=== PATIENT | male | born 1970 | race Caucasian/White ===

== ENCOUNTER 2020-03-05 21:09 | Emergency (ER) | payer OTHER, MEDICAID, SELFPAY ==
[2020-03-05 21:17] VITALS: BP 112/69; PULSE 75; RESP 20; TEMP 36.4; O2SAT 99
--- NOTE | 2020-03-06 06:42 | ED_ITS ---
HPI - Wound/Laceration General Chief Complaint: Wound/Laceration Stated Complaint: Cut Left Thumb Time Seen by Provider: 03/05/20 21:13 Source: patient Mode of arrival: Ambulatory Limitations: no limitations History of Present Illness HPI narrative: 49-year-old male with noncontributory medical history presents with his in the chief complaint of an accidental laceration on the dorsum of his left thumb. Bleeding has been controlled with a bandage and pressure. No weakness, numbness or tingling. Tetanus is current. He denies any other injury. Onset (ago): hour(s) Place: home Patient tetanus UTD: Yes Context: accidental Associated symptoms: none Treatments prior to arrival: bandage Related Data Previous Rx's Medication Instructions Recorded cephalexin [Keflex] 500 mg PO QID 7 Days #28 cap 03/05/20 Review of Systems Constitutional Constitutional: Denies chills, Denies fatigue, Denies fever(s), Denies frequent falls, Denies lethargy and Denies weakness Eyes Eyes: Denies change in vision, Denies eye discharge, Denies irritation and Denies loss of vision ENT Ears, Nose, Mouth, and Throat: Denies change in voice, Denies dizziness, Denies neck pain, Denies sore throat and Denies throat swelling Cardiovascular Cardiovascular: Denies chest pain, Denies irregular heart rhythm, Denies lightheadedness, Denies palpitations, Denies dyspnea, Denies dyspnea on exertion and Denies orthopnea Respiratory Respiratory: Denies cough, Denies dyspnea, Denies dyspnea on exertion and Denies wheezing Gastrointestinal Gastrointestinal: Denies abdominal pain, Denies change in bowel habits, Denies diarrhea, Denies nausea and Denies vomiting Genitourinary Genitourinary: Denies hematuria, Denies flank pain, Denies urinary incontinence and Denies urinary urgency Musculoskeletal Musculoskeletal: Denies back pain, Denies muscle weakness, Denies neck pain, Denies numbness and Denies tingling Integumentary/Breasts Skin/Breast: Denies pruritus, Denies erythema, Denies rash and Reports wounds Neurologic Neurologic: Denies behavioral changes, Denies confusion, Denies dizziness, Denies frequent falls, Denies loss of vision, Denies numbness, Denies tingling and Denies weakness Psychiatric Psychiatric: Denies anxiety, Denies behavioral changes, Denies confusion, Denies depression, Denies homicidal ideation and Denies suicidal ideation Endocrine Endocrine: Denies fatigue, Denies flushing and Denies palpitations Hematologic/Lymphatic Hematologic/Lymphatic: Denies easy bruising Allergic/Immunologic Allergic/Immunologic: Denies urticaria, Denies throat swelling and Denies wheezing Patient History Substance Use Type: does not use Exam Narrative Exam Narrative: GEN: AOx3 and in mild distress EYES: Pupils are equal, round, and reactive to light and accommodation. Extraoccular muscles are intact bilaterally. There is no subconjunctival hemorrhage or exudate. CHEST: Lungs are clear to auscultation bilaterally and free of wheezes, rales, or rhonchi. Heart rate is regular rhythm, there are no murmurs, clicks, rubs, or gallops. There is no chest wall tenderness. ABD: Abdomen is soft and nontender. There is no guarding or rebound. Bowel sounds are normal in all 4 quadrants. There is no mass or organomegaly. EXT: 1 cm laceration on dorsum of left thumb, no active bleeding, visualized in a bloodless field and no foreign body or involvement of tendon noted. Full painless ROM of all extremities with no loss of sensation or strength. SKIN: Warm, pink, and dry. No erythema or rash Initial Vital Signs Initial Vital Signs: Vital Signs Temperature 97.5 F L 03/05/20 21:17 Pulse Rate 75 03/05/20 21:17 Respiratory Rate 20 03/05/20 21:17 Blood Pressure 112/69 03/05/20 21:17 Pulse Oximetry 99 03/05/20 21:17 Procedures Laceration Repair Laceration 1: Side (If applicable): left Size (cm): 1.0 Description: linear Depth: simple, single layer Local Anesthetic: lidocaine 1% Pre-repair: wound explored, irrigated extensively and deep structures in tact Skin layer closed with: nylon Size (cm): 5-0 Number of sutures: 3 Technique: simple, interrupted Course Orders Ordered: Discontinued Medications Lidocaine/Sodium Bicarbonate (Buffered Lidocaine 10 Ml Syr) 10 ml INJ NOW ONE Stop: 03/05/20 21:17 Discharge Plan Departure Patient Disposition: Home Clinical Impression: Laceration of thumb Qualifiers: Encounter type: initial encounter Damage to nail status: without damage Foreign body presence: without foreign body Laterality: left Qualified Code(s): S61.012A - Laceration without foreign body of left thumb without damage to nail, initial encounter Discharge Date/Time: 03/05/20 22:23 Instructions: DI for Laceration Repair Activity Restrictions/Additional Instructions: *You have been diagnosed with [accidental laceration to left thumb] *What to do: *Take medications as directed *Follow up with your primary care provider in about 7 days, call for an appointment. Let them know you were seen in the Emergency Department and that we ask that you be seen in follow up *Return to ER if you should have any new, worsening or concerning symptoms Please keep the wound clean and dry to the best of your ability. Please monitor for signs of infection such as redness to the skin or increasing pain. Have the sutures removed by your doctor in about 7 days. If you are unable to get into your doctor, we would be happy to remove the sutures in that same timeframe. Prescriptions: New cephalexin [Keflex] 500 mg capsule 500 mg PO QID 7 Days Qty: 28 RF: 0
== END 2020-03-05 22:23 | disposition home or self-care (01) ==
PROVIDERS: Emergency Provider Emergency Medicine; PCP Family Medicine
DX: S61.012A Laceration without foreign body of left thumb without damage to nail, initial encounter (principal); W45.8XXA Other foreign body or object entering through skin, initial encounter
CPT/HCPCS: 12001; 99283

== ENCOUNTER → 2020-05-02 16:50 | Outpatient (CLI) | payer OTHER, MEDICAID, SELFPAY ==
--- NOTE | 2020-05-02 16:53 | DI.RAD.S_ITS ---
PROCEDURE: XR SHOULDER LT MIN 2V INDICATIONS: LEFT SHOULDER PAIN TECHNIQUE: 3 views of the shoulder were acquired. COMPARISON: None. FINDINGS: Bones: No fractures or dislocations. Mild acromioclavicular joint osteoarthritis is see No suspicious bony lesions. Visualized ribs appear intact. Soft tissues: No suspicious soft tissue calcifications. IMPRESSION: Mild acromioclavicular joint osteoarthritis. No fracture or dislocation. Dictated by: Beto Ashley M.D. on 05/02/2020 at 17:21 Approved by: Beto Ashley M.D. on 05/02/2020 at 17:22
== END ==
PROVIDERS: PCP Family Medicine; Referring Provider Family Medicine; Visit Provider Family Medicine
DX: M25.512 Pain in left shoulder (principal); M19.012 Primary osteoarthritis, left shoulder
CPT/HCPCS: 73030

== ENCOUNTER 2020-07-18 13:57 | Emergency (ER) | payer OTHER, MEDICAID, SELFPAY ==
[2020-07-18 14:02] VITALS: BP 97/50; PULSE 65; RESP 18; TEMP 36.7; O2SAT 100
--- NOTE | 2020-07-18 14:07 | DI.RAD.S_ITS ---
PROCEDURE: XR KNEE RT 3V INDICATIONS: a cow fell on it TECHNIQUE: 3 views of the knee were acquired. COMPARISON: None. FINDINGS: Bones: No fractures or dislocations. No suspicious bony lesions. Soft tissues: No joint effusion. No suspicious soft tissue calcifications. Anterior lower thigh soft tissue swelling is seen. IMPRESSION: No acute right knee fracture or dislocation. Significant soft tissue swelling over anterior aspect of lower thigh. No significant joint effusion. Dictated by: Beto Ashley M.D. on 07/18/2020 at 13:22 Approved by: Beto Ashley M.D. on 07/18/2020 at 13:22
[2020-07-18] MEDS: LIDOCAINE PATCH 1 EACH ADH..PATCH TOP (16:14)
[2020-07-18] MEDS: KETOROLAC 60 MG/2 ML VIAL 30 MG IM (16:14)
[2020-07-18 16:58] VITALS: BP 90/57; PULSE 61; RESP 16; O2SAT 99
--- NOTE | 2020-07-18 17:00 | ED_ITS ---
HPI - Extremity Injury (Lower) <DANA Valverde - Last Filed: 07/18/20 17:06> General Chief Complaint: Extremity Injury, Lower Stated Complaint: cow fell on right leg Time Seen by Provider: 07/18/20 15:36 Source: patient and family Mode of arrival: Ambulatory Limitations: no limitations History of Present Illness HPI Narrative: The patient is a 49-year-old male nonsmoker with history of chronic back pain who presents with a chief complaint of ?a cow fell on my leg.He states that a CT was being shot and it fell hitting his right knee. He is able to weightbear. Happened approximately 1 hour prior to arrival. He has not taken anything for pain. He denies any numbness or tingling to his right leg, states that he does have some chronic pain related to his slipped disc. He denies any other injuries. He denies any previous injuries to his right knee. He states that hurts on the inside of his knee. He states that when the cow hit his knee, it twisted in. Related Data Previous Rx's Medication Instructions Recorded ketorolac 10 mg PO TID PRN #14 tab 07/18/20 lidocaine 1 patch TOP DAILY PRN #15 each 07/18/20 Allergies Allergy/AdvReac Type Severity Reaction Status Date / Time No Known Drug Allergies Allergy Verified 07/18/20 16:12 Review of Systems <DANA Valverde - Last Filed: 07/18/20 17:06> Review of Systems Narrative: GENERAL: Denies chills, fatigue, malaise, fever, sweats. HEENT: Denies sinus pain, ear pain, sore throat, difficulty swallowing, dizziness. RESPIRATORY: Denies dyspnea, cough, wheezing, hemoptysis, sputum. CARDIOVASCULAR: Denies chest pain, palpitations, orthopnea, edema, GASTROINTESTINAL: Denies nausea, vomiting, abdominal pain, diarrhea, constipation, melena. : Denies dysuria, frequency, incontinence, hematuria, urinary retention. MUSCULOSKELETAL: See HPI SKIN: Denies rash, skin lesions, or other NEUROLOGIC: Denies weakness, headache, numbness, change in speech, confusion, seizures, incoordination. PSYCHIATRIC: No concerning psychosocial issues. 12 point review of systems is negative except for those stated above Patient History <DANA Valverde - Last Filed: 07/18/20 17:06> Substance Use Type: does not use Exam <DANA ValverdeBC - Last Filed: 07/18/20 17:06> Narrative Exam Narrative: GENERAL: This is a well-nourished, well-developed patient, in no acute distress HEAD: Atraumatic. Normocephalic. No temporal or scalp tenderness. EYES: Pupils equal round and reactive. Extraocular motions intact. No scleral icterus. No injection or drainage. ENT: Nose without bleeding, purulent drainage or septal hematoma. Throat without erythema, tonsillar hypertrophy or exudate. Uvula midline. Airway patent. NECK: Trachea midline. No JVD or lymphadenopathy. Supple, nontender, no meningeal signs.without murmurs, gallops, or rubs. RESPIRATORY: No cough. No increased respiratory effort. No accessory muscle use. GASTROINTESTINAL: Abdomen soft, non-tender, nondistended. No hepato-spleno megaly, or palpable masses. No guarding. EXTREMITIES: Able to fully flex and extend right knee, pain to palpation medial aspect right knee, stable to palpation, negative anterior, posterior drawer, p ain on varus and valgus. Able to fully extend left leg and lifted off of wheelchair. Swelling noted superior to knee. No pain to palpation other than palpation of medial knee. BACK: Nontender without deformity or crepitance. No flank tenderness. NEURO: AOx3. Stable gait. Limping slightly due to knee pain. SKIN: No rash or erythema on visible skin Initial Vital Signs Initial Vital Signs: Vital Signs Temperature 98.1 F 07/18/20 14:02 Pulse Rate 65 07/18/20 14:02 Respiratory Rate 18 07/18/20 14:02 Blood Pressure 97/50 L 07/18/20 14:02 Pulse Oximetry 100 07/18/20 14:02 <Marilyn Bermeo MD - Last Filed: 07/19/20 11:02> Initial Vital Signs Initial Vital Signs: Vital Signs Temperature 98.1 F 07/18/20 14:02 Pulse Rate 65 07/18/20 14:02 Respiratory Rate 18 07/18/20 14:02 Blood Pressure 97/50 L 07/18/20 14:02 Pulse Oximetry 100 07/18/20 14:02 Procedures <JUAN Valverde - Last Filed: 07/18/20 17:06> Orthopedic Splinting/Casting Injury #1: Side: right Lower Extremity Injury Location: knee Lower Extremity Immobilizer: Malcolm wrap Post splinting neuro exam: intact Post splinting vascular exam: intact Placed by: Nursing Scores <JUAN Valverde - Last Filed: 07/18/20 17:06> GCS [place] coma scale eye opening: Spontaneous Dahlia coma scale verbal response: Orientated Dahlia coma scale motor response: Obey commands [place] coma scale total score: 15 Course <JUAN Valverde - Last Filed: 07/18/20 17:06> Orders Ordered: Discontinued Medications Ketorolac Tromethamine (Toradol) 30 mg IM NOW ONE Stop: 07/18/20 15:51 Last Admin: 07/18/20 16:14 Dose: 30 mg Documented by: HAIM Lidocaine (Lidoderm) 1 each TOP NOW ONE Stop: 07/18/20 15:51 Last Admin: 07/18/20 16:14 Dose: 1 each Documented by: HAIM Vital Signs Vital signs: Vital Signs - 8 hr 07/18/20 14:02 07/18/20 16:58 Temperature 98.1 F Pulse Rate 65 61 Respiratory Rate 18 16 Blood Pressure 97/50 L 90/57 L Pulse Oximetry 100 99 <Marilyn Bermeo MD - Last Filed: 07/19/20 11:02> Orders Ordered: Discontinued Medications Ketorolac Tromethamine (Toradol) 30 mg IM NOW ONE Stop: 07/18/20 15:51 Last Admin: 07/18/20 16:14 Dose: 30 mg Documented by: HAIM Lidocaine (Lidoderm) 1 each TOP NOW ONE Stop: 07/18/20 15:51 Last Admin: 07/18/20 16:14 Dose: 1 each Documented by: HAIM Vital Signs Vital signs: Vital Signs - 8 hr 07/18/20 14:02 07/18/20 16:58 Temperature 98.1 F Pulse Rate 65 61 Respiratory Rate 18 16 Blood Pressure 97/50 L 90/57 L Pulse Oximetry 100 99 MDM - Extremity Injury (Lower) <JUAN Valverde - Last Filed: 07/18/20 17:06> Imaging Data Extremity x-ray #1: Radiologist's Impression: [address] [place] [id number] XRay Report Signed Patient: Luís Cavazos PMR#: [id number] : 1970Acct:[id number] Age/Sex: 49 / MDate of Service: 07/18/20 Loc: ED Accession Number: [id number] Procedure: XR knee RT 3V Ordering Provider: Negro Alvarado D.O. PROCEDURE: XR KNEE RT 3V INDICATIONS: a cow fell on it TECHNIQUE: 3 views of the knee were acquired. COMPARISON: None. FINDINGS: Bones: No fractures or dislocations. No suspicious bony lesions. Soft tissues: No joint effusion. No suspicious soft tissue calcifications. Anterior lower thigh soft tissue swelling is seen. IMPRESSION: No acute right knee fracture or dislocation. Significant soft tissue swelling over anterior aspect of lower thigh. No significant joint effusion. Dictated by: Beto Ashley M.D. on 07/18/2020 at 13:22 Approved by: Beto Ashley M.D. on 07/18/2020 at 13:22 [facility] Narrative Medical decision making narrative: The patient is a 49-year-old male who presents with a chief complaint of right knee pain after a cab ow fell on his knee. He is neurovascularly intact throughout his stay in the emergency department, is able to weightbear in no acute distress. The patient does feel much improved after the above-stated therapies I discussed at length that normal x-ray does not rule out soft tissue injury, encouraged follow-up with primary care provider. I discussed at length not taking the Toradol with any other NSAIDs, that the lidocaine patch can stay on for 12 hours and, for 12 hours. Encouraged follow-up with primary care provider in the next few days. Patient has no questions or concerns upon discharge and states understanding return pr ecautions as well as follow-up care. Discharge Plan Departure Patient Disposition: Home Clinical Impression: Acute pain of right knee Discharge Date/Time: 07/18/20 17:02 Instructions: How To Perform RICE (Rest, Ice, Compress, Elevate), DI for Knee Pain, DI for Leg Pain Activity Restrictions/Additional Instructions: As I discussed, your x-ray shows no acute fracture. This does not rule out a soft tissue injury such as a ligament or tendon injury. It is important that you follow up with primary care provider, especially if worsening or no improvement. There can be fractures that did not show up on initial x-ray. I have given you a prescription of ketorolac or Toradol. This is an NSAID. Do not combine it with other NSAIDs such as Aleve or ibuprofen. I suggest taking it with some food, as it can irritate your stomach. Please follow-up with primary care provider in the next few days. Please also use rest ice compression elevation. Please come back to emergency department for any acute concerns. Prescriptions: New lidocaine 5 % adhesive patch,medicated 1 patch TOP DAILY PRN (Reason: pain) Qty: 15 RF: 0 ketorolac 10 mg tablet 10 mg PO TID PRN (Reason: pain) Qty: 14 RF: 0 Referrals: Ramy Patel MD [Primary Care Provider] - <Marilyn Bermeo MD - Last Filed: 07/19/20 11:02> Cosign ED Attending Leenaature Attestation: I was immediately available in the department for consultation throughout this patient's visit. I agree with documentation as above. Marilyn Bermeo MD
== END 2020-07-18 17:02 | disposition home or self-care (01) ==
PROVIDERS: Emergency Provider Nurse Practitioner Family; PCP Family Medicine
DX: S89.81XA Other specified injuries of right lower leg, initial encounter (principal); Y93.K9 Activity, other involving animal care
CPT/HCPCS: 73562; 96372; 99283; 99284; J1885

== ENCOUNTER 2020-07-24 12:52 | Emergency (ER) | payer OTHER, MEDICAID, SELFPAY ==
[2020-07-24 13:05] VITALS: BP 119/72; PULSE 70; RESP 14; TEMP 36.9; O2SAT 98; BMI 24.3
[2020-07-24 13:31] LABS: Bacteria Urine None Seen; RBC Urine None Seen (0-5/HPF); WBC Urine None Seen (0-5/HPF)
[2020-07-24 13:33] LABS: Appearance Urine UA CLEAR; Bilirubin Urine UA NEGATIVE (NEGATIVE); Color Urine UA YELLOW; Glucose Urine UA NEGATIVE (Negative); Ketones Urine UA NEGATIVE (NEGATIVE); Leukocyte Esterase Urine UA NEGATIVE (NEGATIVE); Nitrite Urine UA NEGATIVE (Negative); Occult Blood Urine UA NEGATIVE (Negative); Protein Urine UA NEGATIVE (Negative); Urobilinogen Urine UA 0.2 E.U./dL (0.2)
[2020-07-24 13:39] LABS: UR Morphine/Opiate cutoff 300 Negative (Negative); Ur Creatinine Normal (Normal); Ur Specific Gravity Normal (Normal); Urine Amphetamines Negative (Negative); Urine Barbiturates Negative (Negative); Urine Benzodiazepines Negative (Negative); Urine Cocaine Negative (Negative); Urine MDMA Negative (Negative); Urine Methadone Negative (Negative); Urine Methamphetamines Negative (Negative); Urine Oxycodone Negative (Negative); Urine Phencyclidine Negative (Negative); Urine Tetrahydrocannabinol Positive (Negative); Urine Tricyclic Antidepressant Negative (Negative); Urine pH Normal (Normal)
--- NOTE | 2020-07-24 13:40 | ED_ITS ---
HPI - Psych General Chief Complaint: Psychiatric Symptoms Stated Complaint: MENTAL BREAKDOWN Time Seen by Provider: 07/24/20 13:12 Source: patient Mode of arrival: Ambulatory Limitations: no limitations History of Present Illness HPI Narrative: 49-year-old male here for evaluation what he describes as ?anger episodes ?he has been on medications for the past several years provided by his primary doctor for depression and anxiety and anger issues. This was recently switched approximately 2 weeks ago. This was done because the patient states that the prior medicine ?stopped working . Patient reports that the anger outburst started to occur prior to changing the medicine however they have worsened over the past 2 weeks. He does describe episodes where he has thoughts of hurting himself. He states that he would shoot himself. He states that when he is not in these anger episodes he does not have any thoughts of hurting himself. He also has thoughts of hurting others. There is no one in particular that he would have thoughts of hurting just ?anyone who gets my way ?he does not know of any specific thing that triggers his episodes however his was at bedside states that he is very ?OCD ?and when things are out of place he becomes very angry. Patient is concerned that potentially he would ?do something ?during these episodes that he would regret which could lead to him hurting himself. He does not think that he needs admitted to the hospital. He denies any other drugs or alcohol. Has never been in the hospital in the past. Has never attempted to hurt himself in the past. Related Data Previous Rx's Medication Instructions Recorded ketorolac 10 mg PO TID PRN #14 tab 07/18/20 lidocaine 1 patch TOP DAILY PRN #15 each 07/18/20 lorazepam [Ativan] 1 mg PO TID PRN #6 tab 07/24/20 Allergies Allergy/AdvReac Type Severity Reaction Status Date / Time No Known Drug Allergies Allergy Verified 07/24/20 13:12 Review of Systems Constitutional Constitutional: Denies fever(s) and Denies headache(s) ENT Ears, Nose, Mouth, and Throat: Denies headache(s) Cardiovascular Cardiovascular: Denies chest pain and Denies dyspnea Respiratory Respiratory: Denies dyspnea Gastrointestinal Gastrointestinal: Denies abdominal pain Integumentary/Breasts Skin/Breast: Denies lesions and Denies rash Neurologic Neurologic: Denies headache(s) Hematologic/Lymphatic Hematologic/Lymphatic: Denies easy bruising Patient History Medical History Acute pain of right knee (Inactive) Social History Smoking Status: Unknown if ever smoked Smoking Status: Unknown if ever smoked alcohol intake frequency: holidays/special occasions only Substance Use Type: marijuana Exam Initial Vital Signs Initial Vital Signs: Vital Signs Temperature 98.4 F 07/24/20 13:05 Pulse Rate 70 07/24/20 13:05 Respiratory Rate 14 07/24/20 13:05 Blood Pressure 119/72 07/24/20 13:05 Pulse Oximetry 98 07/24/20 13:05 Const General: cooperative and comfortable Limitations: mental status not altered HENMT Head: normal to inspection and normocephalic Resp Effort & Inspection: normal respiratory effort Auscultation: clear to auscultation bilaterally Cardio Rate: regular rate Rhythm: regular rhythm Skin Lesions: no lesions Rashes: no rashes Psych Appearance: grossly normal and well kempt Speech and Movement: agitated Mood: anxious mood Affect: normal affect Attitude: cooperative Thought Process: normal Thought Content: no homicidality and suicidality Scores GCS Dahlia coma scale eye opening: Spontaneous [place] coma scale verbal response: Orientated [place] coma scale motor response: Obey commands Dahlia coma scale total score: 15 Course Orders Ordered: ED Orders 07/24/20 13:12 Consult to [employer] - Burner Technician Stat 07/24/20 13:28 Urinalysis and Microscopic Stat Urine Drug Screen, Rapid Stat 07/24/20 13:44 Acetaminophen Stat Complete Blood Count AUTO DIFF Stat Comprehensive Metabolic Panel Stat Ethanol (ETOH) Stat Lipase Stat Salicylate Stat Thyroid Stimulating Hormone Stat Vital Signs Vital signs: Vital Signs - 8 hr 07/24/20 13:05 07/24/20 13:54 07/24/20 16:49 Temperature 98.4 F Pulse Rate 70 45 L 62 Respiratory Rate 14 18 16 Blood Pressure 119/72 175/73 H 111/62 Pulse Oximetry 98 96 99 MDM - Psych Lab Data Attestation: I reviewed the patient's lab results. Result diagrams: 07/24/20 13:44 07/24/20 13:44 Labs: Lab Results 10/04/0707/24/20 07/24/20 Range/Units 13:28 13:28 13:44 WBC 14.6 H (4.5-11.0) X10^3/uL RBC 4.07 L (4.5-5.9) X10^6/uL Hgb 12.6 L (13.5-17.5) g/dL Hct 37.2 L (41-53) % MCV 91.3 (80-100) fL MCH 31.0 (26-34) PG MCHC 34.0 (30-36) % RDW 15.0 H (11.6-14.8) % Plt Count 329 (150-400) X10^3/uL Neut % (Auto) 81.9 H (50-75) % Lymph % (Auto) 11.9 L (25-40) % [place] % (Auto) 5.3 (3-14) % Eos % (Auto) 0.3 L (2-4) % Baso % (Auto) 0.6 (0-2) % Neut # (Auto) 83266 H (2859-6122) /uL Lymph # (Auto) 1700 (4207-1246) /uL [place] # (Auto) 800 (0-900) /uL Eos # (Auto) 0 (0-450) /uL Baso # (Auto) 100 (0-100) /uL Sodium (137-145) mmol/L Potassium (3.4-5.1) mmol/L Chloride (98-107) mmol/L Carbon Dioxide (22-32) mmol/L BUN (9-20) mg/dL Creatinine (0.66-1.25) mg/dL Estimated GFR (>60) mL/min BUN/Creatinine Ratio (6-22) Glucose (70-100) mg/dL Calcium (8.4-10.2) mg/dL Total Bilirubin (0.2-1.3) mg/dL AST (17-59) IU/L ALT (<50) IU/L Alkaline Phosphatase (38-126) U/L Total Protein (6.3-8.2) g/dL Albumin (3.5-5.0) g/dL Globulin (1.7-4.1) g/dL Albumin/Globulin Ratio (1.0-2.8) Lipase (23-300) U/L TSH (0.47-4.68) uIU/mL Urine Color Yellow Urine Appearance Clear Urine pH 7.0 (4.5-8.0) Ur Specific [place] 1.010 (1.000-1.035) Urine Protein Negative (Negative) Urine Glucose (UA) Negative (Negative) g/dL Urine Ketones Negative (NEGATIVE) Urine Occult Blood Negative (Negative) Urine Nitrate Negative (Negative) Urine Bilirubin Negative (NEGATIVE) Urine Urobilinogen 0.2 (0.2) E.U./dL Ur Leukocyte Esterase Negative (NEGATIVE) Urine RBC None seen (0-5/HPF) Urine WBC None seen (0-5/HPF) Urine Bacteria None seen (None) Ur Culture Indicated? Cult not indicated Micro UA Comment Microscopic normal Salicylates (<20) mg/dL U Opiates 300ng/mL cut Negative (Negative) Ur Oxycodone Screen Negative (Negative) Urine Methadone Screen Negative (Negative) Acetaminophen (10-30) ug/mL Ur Barbiturates Screen Negative (Negative) U Tricyclic Antidepress Negative (Negative) Ur Phencyclidine Scrn Negative (Negative) Ur Amphetamines Screen Negative (Negative) U Methamphetamines Scrn Negative (Negative) Ur MDMA Scrn (Ecstasy) Negative (Negative) U Benzodiazepines Scrn Negative (Negative) Urine Cocaine Screen Negative (Negative) U Marijuana (THC) Screen Positive H (Negative) Ethyl Alcohol ( - 10) mg/dL 07/24/20 07/24/20 Range/Units 13:44 13:44 WBC (4.5-11.0) X10^3/uL RBC (4.5-5.9) X10^6/uL Hgb (13.5-17.5) g/dL Hct (41-53) % MCV (80-100) fL MCH (26-34) PG MCHC (30-36) % RDW (11.6-14.8) % Plt Count (150-400) X10^3/uL Neut % (Auto) (50-75) % Lymph % (Auto) (25-40) % [place] % (Auto) (3-14) % Eos % (Auto) (2-4) % Baso % (Auto) (0-2) % Neut # (Auto) (2418-5657) /uL Lymph # (Auto) (2683-2122) /uL [place] # (Auto) (0-900) /uL Eos # (Auto) (0-450) /uL Baso # (Auto) (0-100) /uL Sodium 141 (137-145) mmol/L Potassium 4.0 (3.4-5.1) mmol/L Chloride 105 (98-107) mmol/L Carbon Dioxide 29 (22-32) mmol/L BUN 12 (9-20) mg/dL Creatinine 0.76 (0.66-1.25) mg/dL Estimated GFR > 60.0 (>60) mL/min BUN/Creatinine Ratio 15.8 (6-22) Glucose 111 H (70-100) mg/dL Calcium 8.8 (8.4-10.2) mg/dL Total Bilirubin 0.3 (0.2-1.3) mg/dL AST 19 (17-59) IU/L ALT 14 (<50) IU/L Alkaline Phosphatase 49 (38-126) U/L Total Protein 6.8 (6.3-8.2) g/dL Albumin 4.1 (3.5-5.0) g/dL Globulin 2.7 (1.7-4.1) g/dL Albumin/Globulin Ratio 1.5 (1.0-2.8) Lipase 131 (23-300) U/L TSH 0.818 (0.47-4.68) uIU/mL Urine Color Urine Appearance Urine pH (4.5-8.0) Ur Specific [place] (1.000-1.035) Urine Protein (Negative) Urine Glucose (UA) (Negative) g/dL Urine Ketones (NEGATIVE) Urine Occult Blood (Negative) Urine Nitrate (Negative) Urine Bilirubin (NEGATIVE) Urine Urobilinogen (0.2) E.U./dL Ur Leukocyte Esterase (NEGATIVE) Urine RBC (0-5/HPF) Urine WBC (0-5/HPF) Urine Bacteria (None) Ur Culture Indicated? Micro UA Comment Salicylates < 1.0 (<20) mg/dL U Opiates 300ng/mL cut (Negative) Ur Oxycodone Screen (Negative) Urine Methadone Screen (Negative) Acetaminophen < 10 L (10-30) ug/mL Ur Barbiturates Screen (Negative) U Tricyclic Antidepress (Negative) Ur Phencyclidine Scrn (Negative) Ur Amphetamines Screen (Negative) U Methamphetamines Scrn (Negative) Ur MDMA Scrn (Ecstasy) (Negative) U Benzodiazepines Scrn (Negative) Urine Cocaine Screen (Negative) U Marijuana (THC) Screen (Negative) Ethyl Alcohol < 10 ( - 10) mg/dL MDM Narrative Medical decision making narrative: Patient was seen by social work. He has an appoint with his primary doctor on . He is not currently suicidal. Not currently homicidal. Medically cleared. Is alert oriented x3. Not clinically intoxicated. GCS of 15. My opinion as capacity make decisions. Patient is not want admitted the hospital. Patient not a candidate for involuntary admission. Social Work agrees with this. Social work was able to establish follow-up tomorrow with [facility]. They will contact the patient. He was also given information with this. I also discussed the case with his primary doctor. Plan to be is to send him home with a few doses of Ativan. He is given instructions for this medication. He will keep his appointment on Thursday. He is given return precautions. Expressed understanding and agreement. Discharge Plan Departure Patient Disposition: Home Clinical Impression: Irritability and anger Discharge Date/Time: 07/24/20 16:50 Activity Restrictions/Additional Instructions: Keep your appointment that you have scheduled with your primary doctor on . Continue all of your medications as directed. You can return to the emergency department at any point for new or worsening symptoms Prescriptions: New lorazepam [Ativan] 1 mg tablet 1 mg PO TID PRN (Reason: anxiety) Qty: 6 RF: 0 No Action lidocaine 5 % adhesive patch,medicated 1 patch TOP DAILY PRN (Reason: pain) Qty: 15 RF: 0 ketorolac 10 mg tablet 10 mg PO TID PRN (Reason: pain) Qty: 14 RF: 0 Referrals: Ramy Patel MD [Primary Care Provider] -
[2020-07-24 13:48] LABS: Culture Indicated Urine Cult Not Indicated; Urine Comments Microscopic Normal
[2020-07-24 13:53] LABS: Add Manual Diff / Slide Review NO; Basophils Absolute Auto 100 /uL (0-100); Basophils Percent Auto 0.6 % (0-2); Eosinophils Absolute Auto 0 /uL (0-450); Eosinophils Percent Auto 0.3 % (2-4); Hematocrit 37.2 % (41-53); Hemoglobin 12.6 g/dL (13.5-17.5); Lymphocytes Absolute Auto 1700 /uL (1100-4500); Lymphocytes Percent Auto 11.9 % (25-40); Mean Corpuscular Volume 91.3 fL (80-100); Monocytes Absolute Auto 800 /uL (0-900); Monocytes Percent Auto 5.3 % (3-14); Neutrophils Absolute Auto 12000 /uL (1500-7000); Neutrophils Percent Auto 81.9 % (50-75); Platelet Count 329 X10^3/uL (150-400); Red Blood Cell Count 4.07 X10^6/uL (4.5-5.9); White Blood Cell Count 14.6 X10^3/uL (4.5-11.0)
[2020-07-24 13:54] VITALS: BP 175/73; PULSE 45; RESP 18; O2SAT 96
[2020-07-24 14:26] LABS: Acetaminophen < 10 ug/mL (10-30); Alanine Aminotransferase 14 IU/L (<50); Albumin 4.1 g/dL (3.5-5.0); Albumin Globulin Ratio 1.5 (1.0-2.8); Alkaline Phosphatase 49 U/L (38-126); Aspartate Aminotransferase 19 IU/L (17-59); BUN Creatinine Ratio 15.8 (6-22); Bilirubin Total 0.3 mg/dL (0.2-1.3); Blood Urea Nitrogen 12 mg/dL (9-20); Calcium 8.8 mg/dL (8.4-10.2); Carbon Dioxide 29 mmol/L (22-32); Chloride 105 mmol/L (98-107); Estimated Glomerular Filt Rate > 60.0 mL/min (>60); Ethanol (ETOH) < 10 mg/dL; Globulin 2.7 g/dL (1.7-4.1); Glucose 111 mg/dL (70-100); HEMOLYSIS < 15 (0-50); Lipase 131 U/L (23-300); Salicylate < 1.0 mg/dL (<20); Sodium 141 mmol/L (137-145); Total Protein 6.8 g/dL (6.3-8.2)
[2020-07-24 14:55] LABS: Thyroid Stimulating Hormone 0.818 uIU/mL (0.47-4.68)
--- NOTE | 2020-07-24 15:08 | PC.NURSE ---
rehabilitation case coordinator at bedside for pt michele
[2020-07-24 16:49] VITALS: BP 111/62; PULSE 62; RESP 16; O2SAT 99
== END 2020-07-24 16:50 | disposition home or self-care (01) ==
PROVIDERS: Emergency Provider Emergency Medicine; PCP Family Medicine
DX: R45.4 Irritability and anger (principal)
CPT/HCPCS: 80053; 80305; 80320; 80329; 81001; 83690; 84443; 85025; 99283; G0480

== ENCOUNTER 2020-09-09 15:27 | Emergency (ER) | payer OTHER, MEDICAID, SELFPAY ==
[2020-09-09 15:35] VITALS: BP 120/71; PULSE 84; RESP 18; TEMP 37.1; O2SAT 99; BMI 23.1
--- NOTE | 2020-09-09 16:22 | ED_ITS ---
HPI - Syncope General Chief Complaint: Syncope Stated Complaint: passed out in the lawn Time Seen by Provider: 09/09/20 15:44 Source: patient and family Mode of arrival: Family Vehicle Limitations: no limitations History of Present Illness HPI narrative: This is a 49-year-old male who comes to the emergency department with complaint of passing out on his lawn. Patient was standing upright it was witnessed by his . He states he felt like his vision was narrowing and then he woke up on the ground. His states that she saw him standing he fell straight without buckling into the ground it took her about 30-40 seconds to get to him and he was regaining consciousness at that point. Patient has a mild h eadache at this time. He did not have any other presyncopal symptoms other than feeling weird and had a vision that he was about to get tazed. Patient denies any chest pain, no shortness of breath, no headache prior to the event. No nausea, no vomiting, no diarrhea, no constipation or urinary symptoms. Patient does have a history of chronic pain, psychiatric issues with recent hospitalization a month ago for hallucinations, he does not have any cardiac, pulmonary or embolic history. His mother in her 60s did develop cardiac arrhythmias and had a pacemaker. He vapes tobacco and occasionally uses cigarettes, no tobacco, he uses marijuana but no other illicit. Related Data Home Medications Medication Instructions Recorded Confirmed aripiprazole 15 mg tablet 15 mg PO DAILY 09/04/20 09/04/20 clonazepam 1 mg tablet 1 mg PO TID 09/04/20 09/04/20 ibuprofen 800 mg tablet 800 mg PO Q8H 09/04/20 09/04/20 lamotrigine 100 mg tablet 100 mg PO DAILY 09/04/20 09/04/20 olanzapine 20 mg tablet 20 mg PO BEDTIME 09/04/20 09/04/20 Previous Rx's Medication Instructions Recorded lidocaine 1 patch TOP DAILY PRN #15 each 07/18/20 Allergies Allergy/AdvReac Type Severity Reaction Status Date / Time No Known Drug Allergies Allergy Verified 09/04/20 13:14 Review of Systems Review of Systems ROS Unobtainable: All systems reviewed & are unremarkable except as noted in HPI and below Patient History Medical History Acute pain of right knee Social History Smoking Status: Current every day smoker Smoking Status: Current every day smoker alcohol intake frequency: holidays/special occasions only Substance Use Type: marijuana Exam Narrative Exam Narrative: GEN: well nourished, well appearing male, alert and oriented x 3, patient appears to be in mild distress. HEENT: Atraumatic, pupils are equal round reactive to light, extraocular movements are intact, nares are clear, nystagmus, TMs are clear with no fluid, there is no conjunctival pallor. Throat is clear without any exudates, erythema, tonsillar enlargement or uvular deviation HEART: Regular rate and rhythm without murmur, clicks, rubs. Pulses are equal in upper and lower extremities LUNGS:Lungs clear to auscultation, no wheezes, rales, crackles, chest moves symmetrically ABD:bowel sounds normal, soft, non-tender, no guarding, rebound, rigidity, no masses noted, no hepatosplenomegaly MSCL: Non-tender, no muscle atrophy, muscles strength 5/5 upper and lower extremities, full range of motion, normal gait NEURO:CN 2-12 intact, sensation normal, reflexes 2/4 upper and lower extremities. SKIN: no rash, no erythema, no other skin changes. Initial Vital Signs Initial Vital Signs: Vital Signs Temperature 98.8 F 09/09/20 15:35 Pulse Rate 84 09/09/20 15:35 Respiratory Rate 18 09/09/20 15:35 Blood Pressure 120/71 09/09/20 15:35 Pulse Oximetry 99 09/09/20 15:35 Course Orders Ordered: ED Orders 09/09/20 15:54 Complete Blood Count AUTO DIFF Stat Ethanol (ETOH) Stat Lamotrigine Lamictal Stat Magnesium Stat Troponin & CK Cardiac Panel Stat 09/09/20 16:39 XR chest 1V Stat Discontinued Medications Sodium Chloride (Normal Saline 0.9%) 1,000 mls @ 1,000 mls/hr IV BOLUS ONE Stop: 09/09/20 17:37 Last Admin: 09/09/20 17:08 Dose: 1,000 mls/hr Documented by: PITO Vital Signs Vital signs: Vital Signs - 8 hr 09/09/20 15:35 09/09/20 17:54 09/09/20 17:56 Temperature 98.8 F Pulse Rate 84 77 75 Respiratory Rate 18 13 17 Blood Pressure 120/71 111/72 Pulse Oximetry 99 100 99 MDM - Syncope Lab Data Attestation: I reviewed the patient's lab results. Result diagrams: 09/09/20 15:54 Labs: Lab Results 09/09/20 09/09/20 09/09/20 Range/Units 15:54 15:54 15:54 WBC 14.8 H (4.5-11.0) X10^3/uL RBC 4.02 L (4.5-5.9) X10^6/uL Hgb 12.6 L (13.5-17.5) g/dL Hct 37.0 L (41-53) % MCV 92.1 (80-100) fL MCH 31.3 (26-34) PG MCHC 34.0 (30-36) % RDW 15.3 H (11.6-14.8) % Plt Count 337 (150-400) X10^3/uL Neut % (Auto) 78.9 H (50-75) % Lymph % (Auto) 11.1 L (25-40) % [place] % (Auto) 6.4 (3-14) % Eos % (Auto) 2.9 (2-4) % Baso % (Auto) 0.7 (0-2) % Neut # (Auto) 92663 H (7670-2436) /uL Lymph # (Auto) 1600 (1651-1348) /uL [place] # (Auto) 900 (0-900) /uL Eos # (Auto) 400 (0-450) /uL Baso # (Auto) 100 (0-100) /uL Magnesium 2.0 (1.6-2.3) mg/dL Total Creatine Kinase 85 (55-170) U/L CK-MB (CK-2) TNP CK-MB (CK-2) Rel Index TNP Troponin I < 0.012 (0.01-0.034) ng/mL Ethyl Alcohol < 10 ( - 10) mg/dL Point of Care Testing Glucose POC 144 Imaging Data Chest x-ray: Attestation: I personally reviewed and interpreted this imaging study as follows: Radiologist's Impression: [address] [id number] ReportSigned Patient: Luís Cavazos PMR#: [id number]: 1970Acct:[id number]/Sex: 49 / MDate of Service: 09/09/20Loc: EDAccession Number: [id number] Procedure: XR chest 1V Ordering Provider: Tabatha Curtis D.O. PROCEDURE: XR CHEST 1V INDICATIONS: syncope TECHNIQUE: One view of the chest was acquired. COMPARISON: None. FINDINGS: Surgical changes and devices: None. Lungs and pleura: Mild bilateral interstitial infiltrates are seen. No pneumothorax or pleural effusions are seen. Mediastinum: Mediastinal contours appear normal. Heart size is normal. Bones and chest wall: No suspicious bony lesions. Overlying soft tissues appear unremarkable. IMPRESSION: There are mild bilateral interstitial infiltrates. Please consider COVID pneumonia. Dictated by: Klaus Ríos M.D. on 09/09/2020 at 16:25 Approved by: Klaus Ríos M.D. on 09/09/2020 at 16:26 ECG Data Attestation: I personally reviewed and interpreted this ECG as follows: Prior ECG tracings: not available for review Interpretation: Sinus rhythm rate 83, OH 142, QRS of 96 and QTC of 458. No ST elevation or depression appreciated. MDM Narrative Medical decision making narrative: 49-year-old male who comes with episode of syncope, patient had multiple episodes of falling asleep quickly, having some co nfusion and slow thoughts. He has had several medications started in the last month and had an increase in his Lamictal in the last week and I suspect he is having changes secondary to his psychiatric medications. Plan to hold his Lamictal while at the send out level is pending. Contact his psychiatrist Dr. shearer tomorrow to discuss adjusting his medications and return to the ER for new or concerning symptoms. His labs, EKG and imaging do not show any changes today suspicious for cardiac or pulmonary symptoms. He does not have any other discrete neurologic changes today. Discharge Plan Departure Patient Disposition: Home Clinical Impression: Syncope Instructions: DI for Syncope in Adults (Fainting) Activity Restrictions/Additional Instructions: Follow up with Dr. Shearer in the next 2-3 days. Call for an appointment to adjust your medications either over the phone or in person. I would no increase your Lamictal at this time and I would hold your next few doses. Your lamictal level is pending. Return to the ER for fevers, severe headaches, lightheadedness, recurrent episo teresa of passing out or syncope, new chest pain, shortness of breath, persistent vomiting, altered mental status, new confusion or other new or concerning symptoms. Prescriptions: No Action clonazepam 1 mg tablet 1 mg PO TID RF: 0 ibuprofen 800 mg tablet 800 mg PO Q8H RF: 0 lamotrigine 100 mg tablet 100 mg PO DAILY RF: 0 olanzapine [Zyprexa] 20 mg tablet 20 mg PO BEDTIME RF: 0 aripiprazole [Abilify] 15 mg tablet 15 mg PO DAILY RF: 0 lidocaine 5 % adhesive patch,medicated 1 patch TOP DAILY PRN (Reason: pain) Qty: 15 RF: 0 Referrals: Syed Shearer MD [Physician] - Ramy Patel MD [Primary Care Provider] -
--- NOTE | 2020-09-09 16:39 | DI.RAD.S_ITS ---
PROCEDURE: XR CHEST 1V INDICATIONS: syncope TECHNIQUE: One view of the chest was acquired. COMPARISON: None. FINDINGS: Surgical changes and devices: None. Lungs and pleura: Mild bilateral interstitial infiltrates are seen. No pneumothorax or pleural effusions are seen. Mediastinum: Mediastinal contours appear normal. Heart size is normal. Bones and chest wall: No suspicious bony lesions. Overlying soft tissues appear unremarkable. IMPRESSION: There are mild bilateral interstitial infiltrates. Please consider COVID pneumonia. Dictated by: Klaus Ríos M.D. on 09/09/2020 at 16:25 Approved by: Klaus Ríos M.D. on 09/09/2020 at 16:26
[2020-09-09 16:54] LABS: Add Manual Diff / Slide Review NO; Basophils Absolute Auto 100 /uL (0-100); Basophils Percent Auto 0.7 % (0-2); Eosinophils Absolute Auto 400 /uL (0-450); Eosinophils Percent Auto 2.9 % (2-4); Hemoglobin 12.6 g/dL (13.5-17.5); Lymphocytes Absolute Auto 1600 /uL (1100-4500); Lymphocytes Percent Auto 11.1 % (25-40); Mean Corpuscular Hemoglobin 31.3 PG (26-34); Mean Corpuscular Volume 92.1 fL (80-100); Monocytes Absolute Auto 900 /uL (0-900); Monocytes Percent Auto 6.4 % (3-14); Neutrophils Absolute Auto 11700 /uL (1500-7000); Neutrophils Percent Auto 78.9 % (50-75); Platelet Count 337 X10^3/uL (150-400); Red Blood Cell Count 4.02 X10^6/uL (4.5-5.9); Red Cell Distribution Width 15.3 % (11.6-14.8); White Blood Cell Count 14.8 X10^3/uL (4.5-11.0)
[2020-09-09 17:02] LABS: Creatine Kinase 85 U/L (55-170); Ethanol (ETOH) < 10 mg/dL
[2020-09-09] MEDS: SODIUM CHLORIDE 0.9% 1,000 ML 1000 ML IV (17:08)
[2020-09-09 17:15] LABS: Troponin I < 0.012 ng/mL (0.01-0.034)
[2020-09-09 17:54] VITALS: PULSE 77; RESP 13; O2SAT 100
[2020-09-09 17:56] VITALS: BP 111/72; PULSE 75; RESP 17; O2SAT 99
[2020-09-12 12:45] LABS: Lamotrigine Lamictal 1.7 ug/mL (2.0-20.0)
--- NOTE | 2020-09-17 15:40 | PC.NURSE ---
Late entry: IV NS infused 1810 hrs.
== END 2020-09-09 18:39 | disposition home or self-care (01) ==
PROVIDERS: Emergency Provider Emergency Medicine; PCP Family Medicine; Referring Provider Psychiatry & Neurology Psychiatry
DX: R55 Syncope and collapse (principal); R07.9 Chest pain, unspecified; R41.0 Disorientation, unspecified
CPT/HCPCS: 36415; 71045; 80175; 80320; 82550; 82962; 83735; 84484; 85025; 93005; 93010; 96360; 99283; 99284

== ENCOUNTER 2020-09-12 13:13 | Emergency (ER) | payer OTHER, MEDICAID, SELFPAY ==
[2020-09-12 13:22] VITALS: BP 107/61; PULSE 69; PULSE 73; RESP 18; TEMP 37; O2SAT 97; O2SAT 99
[2020-09-12 13:30] VITALS: BP 95/59; PULSE 72; RESP 18; O2SAT 98
--- NOTE | 2020-09-12 13:43 | ED.GENADULT ---
HPI - General Adult General Chief complaint: Syncope Stated complaint: Passed Out For 2nd Time In 2 Days, Fever Time Seen by Provider: 09/12/20 13:17 Source: patient and family Mode of arrival: Ambulatory Limitations: no limitations History of Present Illness HPI narrative: 49-year-old male here with his for evaluation of a syncopal episode. He states that a couple days ago he was seen here in the emergency department for the same. During that time he was standing out in his front lawn where he fell. There was no injuries from the fall. He came to emergency department had a relatively unremarkable workup. He states that the event happened again today. States he has been out working in his yard willing some brick. He states he was standing looking at the break when all the son he fell over. He denies any explicit prodromal symptoms. There was no loss of bowel or bladder. Did not injure himself with the fall. There was no postictal state. At the time my evaluation patient reports no symptoms. Related Data Home Medications Medication Instructions Recorded Confirmed aripiprazole 15 mg tablet 15 mg PO DAILY 09/04/20 09/04/20 clonazepam 1 mg tablet 1 mg PO TID 09/04/20 09/04/20 ibuprofen 800 mg tablet 800 mg PO Q8H 09/04/20 09/04/20 lamotrigine 100 mg tablet 100 mg PO DAILY 09/04/20 09/04/20 olanzapine 20 mg tablet 20 mg PO BEDTIME 09/04/20 09/04/20 Previous Rx's Medication Instructions Recorded lidocaine 1 patch TOP DAILY PRN #15 each 07/18/20 Allergies Allergy/AdvReac Type Severity Reaction Status Date / Time No Known Drug Allergies Allergy Verified 09/04/20 13:14 Review of Systems Constitutional Constitutional: Denies fever(s) and Denies headache(s) Eyes Eyes: Denies change in vision ENT Ears, Nose, Mouth, and Throat: Denies halitosis, Denies vertigo, Denies dizziness, Denies headache(s), Denies disequilibrium and Denies sore throat Cardiovascular Cardiovascular: Denies chest pain, Reports syncope, Denies rapid heart rate, Denies dyspnea and Denies dyspnea on exertion Respiratory Respiratory: Denies cough, Denies dyspnea and Denies dyspnea on exertion Gastrointestinal Gastrointestinal: Denies abdominal pain, Denies nausea and Denies vomiting Genitourinary Genitourinary: Denies dysuria Genitourinary: Denies dysuria Musculoskeletal Musculoskeletal: Denies arthralgias, Denies myalgias and Denies tingling Integumentary/Breasts Skin/Breast: Denies lesions and Denies rash Neurologic Neurologic: Denies behavioral changes, Denies vertigo, Denies dizziness, Reports syncope, Denies headache(s), Denies seizure-like activity, Denies tingling and Denies disequilibrium Psychiatric Psychiatric: Denies anxiety and Denies behavioral changes Hematologic/Lymphatic Hematologic/Lymphatic: Denies easy bleeding and Denies easy bruising Allergic/Immunologic Allergic/Immunologic: Denies urticaria Patient History Medical History Acute pain of right knee Social History Smoking Status: Current every day smoker Smoking Status: Current every day smoker alcohol intake frequency: holidays/special occasions only Substance Use Type: marijuana Exam Initial Vital Signs Initial Vital Signs: Vital Signs Temperature 98.6 F 09/12/20 13:22 Pulse Rate 69 09/12/20 13:22 Respiratory Rate 18 09/12/20 13:22 Blood Pressure 107/61 09/12/20 13:22 Pulse Oximetry 99 09/12/20 13:22 Const General: cooperative and comfortable Limitations: mental status not altered HENMT Head: normal to inspection and normocephalic Resp Effort & Inspection: normal respiratory effort Auscultation: clear to auscultation bilaterally Cardio Rate: regular rate Rhythm: regular rhythm GI Inspection: non-distended Palpation: soft Skin Lesions: no lesions Rashes: no rashes Neuro General: patient alert, patient awake and not oriented x3 Cognition: normal cognition Speech: speech normal Motor: muscle tone normal throughout Sensory Exam: no sensory deficits noted Extrem General: normal to inspection and capillary refill normal Psych Appearance: grossly normal and well kempt Course Orders Ordered: ED Orders 09/12/20 13:20 EKG-12 Lead Stat 09/12/20 13:30 Complete Blood Count AUTO DIFF Stat Comprehensive Metabolic Panel Stat Lipase Stat Discontinued Medications Sodium Chloride (Normal Saline 0.9%) 1,000 mls @ 1,000 mls/hr IV BOLUS ONE Stop: 09/12/20 14:39 Last Infusion: 09/12/20 14:49 Dose: 0 mls/hr Documented by: Admin: 09/12/20 14:03 Dose: 1,000 mls/hr Documented by: HAIM Vital Signs Vital signs: Vital Signs - 8 hr 09/12/20 13:22 09/12/20 13:30 09/12/20 14:00 Temperature 98.6 F Pulse Rate 73 72 69 Respiratory Rate 18 18 16 Blood Pressure 107/61 95/59 L 97/55 L Pulse Oximetry 97 98 95 09/12/20 14:30 Temperature Pulse Rate 65 Respiratory Rate 16 Blood Pressure 96/56 L Pulse Oximetry 96 Medical Decision Making Lab Data Lab results reviewed: Yes I reviewed the patient's lab results. Result diagrams: 09/12/20 13:30 09/12/20 13:30 Labs: Lab Results 09/12/20 09/12/20 Range/Units 13:30 13:30 WBC 11.0 (4.5-11.0) X10^3/uL RBC 4.01 L (4.5-5.9) X10^6/uL Hgb 12.3 L (13.5-17.5) g/dL Hct 36.6 L (41-53) % MCV 91.3 (80-100) fL MCH 30.7 (26-34) PG MCHC 33.6 (30-36) % RDW 15.2 H (11.6-14.8) % Plt Count 327 (150-400) X10^3/uL Neut % (Auto) 76.1 H (50-75) % Lymph % (Auto) 13.9 L (25-40) % Green % (Auto) 8.4 (3-14) % Eos % (Auto) 1.1 L (2-4) % Baso % (Auto) 0.5 (0-2) % Neut # (Auto) 8400 H (4274-0751) /uL Lymph # (Auto) 1500 (1249-7196) /uL Green # (Auto) 900 (0-900) /uL Eos # (Auto) 100 (0-450) /uL Baso # (Auto) 100 (0-100) /uL Sodium 140 (137-145) mmol/L Potassium 3.6 (3.4-5.1) mmol/L Chloride 103 (98-107) mmol/L Carbon Dioxide 34 H (22-32) mmol/L BUN 12 (9-20) mg/dL Creatinine 0.81 (0.66-1.25) mg/dL Estimated GFR > 60.0 (>60) mL/min BUN/Creatinine Ratio 14.8 (6-22) Glucose 93 (70-100) mg/dL Calcium 9.0 (8.4-10.2) mg/dL Total Bilirubin 0.4 (0.2-1.3) mg/dL AST 20 (17-59) IU/L ALT 14 (<50) IU/L Alkaline Phosphatase 46 (38-126) U/L Total Protein 6.8 (6.3-8.2) g/dL Albumin 4.2 (3.5-5.0) g/dL Globulin 2.6 (1.7-4.1) g/dL Albumin/Globulin Ratio 1.6 (1.0-2.8) Lipase 90 (23-300) U/L ECG Data Attestation: I personally reviewed and interpreted this ECG as follows: Prior ECG tracings: available for review Interpretation: Normal sinus rhythm Normal QRS Ventricular rate is 71 QTC 443 No Q-waves No ST T wave changes MDM Narrative Medical decision making narrative: Patient's symptoms today not consistent with CVA or TIA. Not consistent with seizure. Potentially vasovagal as he just stood up shortly before the symptoms happen. Low suspicion this is caused by the medicines he has taken despite the fact that there are medicines that could make him drowsy as he has not taken any since last evening. Has had no ectopy here in the ER. EKG is unremarkable. Labs unremarkable. Unsure the exact etiology however informed patient that he needs to talk with his primary doctor about a Holter monitor. We did discuss return precautions and follow-up instructions. He expressed understanding and agreement. Discharge Plan Departure Patient Disposition: Home Clinical Impression: Syncope Instructions: DI for Syncope in Adults (Fainting) Activity Restrictions/Additional Instructions: I do recommend that you contact your primary provider to discuss the indications for a Holter monitor. Continue all of your medications as directed. Return to the emergency department for any new or worsening symptoms Prescriptions: No Action clonazepam 1 mg tablet 1 mg PO TID RF: 0 ibuprofen 800 mg tablet 800 mg PO Q8H RF: 0 lamotrigine 100 mg tablet 100 mg PO DAILY RF: 0 olanzapine [Zyprexa] 20 mg tablet 20 mg PO BEDTIME RF: 0 aripiprazole [Abilify] 15 mg tablet 15 mg PO DAILY RF: 0 lidocaine 5 % adhesive patch,medicated 1 patch TOP DAILY PRN (Reason: pain) Qty: 15 RF: 0 Referrals: Ramy Patel MD [Primary Care Provider] -
[2020-09-12 13:47] LABS: Add Manual Diff / Slide Review NO; Basophils Absolute Auto 100 /uL (0-100); Basophils Percent Auto 0.5 % (0-2); Eosinophils Absolute Auto 100 /uL (0-450); Eosinophils Percent Auto 1.1 % (2-4); Hematocrit 36.6 % (41-53); Hemoglobin 12.3 g/dL (13.5-17.5); Lymphocytes Absolute Auto 1500 /uL (1100-4500); Lymphocytes Percent Auto 13.9 % (25-40); Mean Corpuscular HGB Conc 33.6 % (30-36); Mean Corpuscular Hemoglobin 30.7 PG (26-34); Mean Corpuscular Volume 91.3 fL (80-100); Monocytes Absolute Auto 900 /uL (0-900); Monocytes Percent Auto 8.4 % (3-14); Neutrophils Absolute Auto 8400 /uL (1500-7000); Neutrophils Percent Auto 76.1 % (50-75); Platelet Count 327 X10^3/uL (150-400); Red Blood Cell Count 4.01 X10^6/uL (4.5-5.9); Red Cell Distribution Width 15.2 % (11.6-14.8)
[2020-09-12 13:53] LABS: Alanine Aminotransferase 14 IU/L (<50); Albumin 4.2 g/dL (3.5-5.0); Albumin Globulin Ratio 1.6 (1.0-2.8); Alkaline Phosphatase 46 U/L (38-126); Aspartate Aminotransferase 20 IU/L (17-59); BUN Creatinine Ratio 14.8 (6-22); Bilirubin Total 0.4 mg/dL (0.2-1.3); Blood Urea Nitrogen 12 mg/dL (9-20); Carbon Dioxide 34 mmol/L (22-32); Chloride 103 mmol/L (98-107); Estimated Glomerular Filt Rate > 60.0 mL/min (>60); Globulin 2.6 g/dL (1.7-4.1); Glucose 93 mg/dL (70-100); HEMOLYSIS < 15 (0-50); Lipase 90 U/L (23-300); Potassium 3.6 mmol/L (3.4-5.1); Sodium 140 mmol/L (137-145); Total Protein 6.8 g/dL (6.3-8.2)
[2020-09-12 14:00] VITALS: BP 97/55; PULSE 69; RESP 16; O2SAT 95
[2020-09-12] MEDS: SODIUM CHLORIDE 0.9% 1,000 ML 1000 ML IV (14:03)
[2020-09-12 14:30] VITALS: BP 96/56; PULSE 65; RESP 16; O2SAT 96
== END 2020-09-12 14:52 | disposition home or self-care (01) ==
PROVIDERS: Emergency Provider Emergency Medicine; PCP Family Medicine
DX: R55 Syncope and collapse (principal); R07.9 Chest pain, unspecified; R50.9 Fever, unspecified
CPT/HCPCS: 36415; 80053; 83690; 85025; 93005; 93010; 96360; 99283; 99284

== ENCOUNTER → 2021-09-11 10:47 | Outpatient (CLI) | payer OTHER, MEDICAID, SELFPAY ==
--- NOTE | 2021-09-11 | DI.RAD.S_ITS ---
PROCEDURE: XR SHOULDER LT 1V INDICATIONS: LEFT SHOULDER PAIN TECHNIQUE: 3 views of the shoulder were acquired. COMPARISON: [facility], , XR SHOULDER LT MIN 2V, 05/02/2020, 16:51. FINDINGS: Bones: No fractures or dislocations. No suspicious bony lesions. Visualized ribs appear intact. Soft tissues: No suspicious soft tissue calcifications. IMPRESSION: Unremarkable left shoulder radiographs Approved by: Brian Starr M.D. on 09/11/2021 at 12:54
== END ==
PROVIDERS: PCP Family Medicine; Referring Provider Family Medicine; Visit Provider Family Medicine
DX: M25.512 Pain in left shoulder (principal)
CPT/HCPCS: 73030